=== PATIENT | male | born 1985 | race African-American/Black ===

== ENCOUNTER 2017-09-13 05:27 | Emergency (ER) | payer OTHER ==
[~2017-09-13] VITALS: Ht 193 cm; Wt 147.7 kg
[2017-09-13 05:38] VITALS: Ht 193 cm; Wt 147.7 kg
[2017-09-13 06:35] LABS: BASOPHILS 0.1 % (0-2); EOSINOPHILS 0.7 % (0-7); HEMATOCRIT 38.8 % (42.0-54.0); HEMOGLOBIN 13.3 g/dL (13.5-17.5); IMMATURE GRANULOCYTES 0.2 % (0-5); LYMPHOCYTES 10.5 % (15-50); MCH 31.4 pg (26.0-34.0); MCHC 34.3 g/dL (31.0-37.0); MCV 91.7 fL (80.0-100.0); MEAN PLATELET VOLUME 10.1 fL (7.4-10.4); MONOCYTES 12.7 % (2-11); NEUTROPHILS 75.8 % (40-80); PLATELET COUNT 232 10x3/uL (130-400); RBC 4.23 10x6/uL (4.20-6.10); RDW 14.2 % (11.5-14.5); WBC 14.5 10x3/uL (4.8-10.8)
[2017-09-13 06:59] LABS: ALBUMIN 3.4 g/dL (3.4-5.0); ALKALINE PHOSPHATASE 82 U/L (46-116); ALT (SGPT) 48 U/L (10-68); AMYLASE - SERUM 80 U/L (25-115); BILIRUBIN - TOTAL 0.74 mg/dL (0.2-1.3); CALC OSMOLALITY 275 mosm/kg (275-300); CALCIUM 8.7 mg/dL (8.5-10.1); CARBON DIOXIDE 26.8 mmol/L (21.0-32.0); CHLORIDE - SERUM 101 mmol/L (98-107); CREATININE - SERUM 0.9 mg/dL (0.6-1.3); GLUCOSE 113 mg/dL (74-106); LIPASE 623 U/L (73-393); POTASSIUM - SERUM 3.4 mmol/L (3.5-5.1); PROTEIN - SERUM 7.4 g/dL (6.4-8.2); SODIUM 139 mmol/L (136-145); UREA NITROGEN 4 mg/dL (7-18); eGFR NON AFRICAN AMERICAN > 90 mL/min (90-120)
[2017-09-13 07:16] LABS: APPEARANCE CLEAR (CLEAR); BILIRUBIN NEGATIVE (NEGATIVE); COLOR YELLOW (YELLOW); GLUCOSE NEGATIVE (NEGATIVE); KETONE SMALL mg/dL (NEGATIVE); NITRITE NEGATIVE (NEGATIVE); PROTEIN TRACE mg/dL (NEGATIVE); UROBILINOGEN NORMAL (NORMAL)
[2017-09-13 07:18] LABS: BACTERIA FEW /hpf (NONE SEEN); EPITHELIAL CELLS 0-5 /hpf (0-5); MUCUS <1+ /lpf (NONE SEEN); RED CELLS - URINE 0-5 /hpf (0-5)
[2017-09-13] MEDS ORDERED: ULTRAM50 MG PO (08:37)
[2017-09-13] MEDS ORDERED: ZOFRAN ODT4 MG/UDTAB PO (08:37)
[2017-09-13 08:53] VITALS: BP 158/93
== END 2017-09-13 08:58 | disposition home or self-care (01) ==
LOC: D.ER 05:27
PROVIDERS: Family Medicine
DX: R10.9 Unspecified abdominal pain (principal); K85.90 Acute pancreatitis without necrosis or infection, unspecified; F17.200 Nicotine dependence, unspecified, uncomplicated

== ENCOUNTER 2018-01-13 15:08 | Emergency (ER) | payer OTHER ==
[~2018-01-13] VITALS: Ht 193 cm; Wt 147.7 kg
[~2018-01-13 15:08] MED LIST: ULTRAM50 MG PO; ZOFRAN ODT4 MG/UDTAB PO
[2018-01-13 15:34] VITALS: Ht 193 cm; Wt 147.7 kg
[2018-01-13 15:46] LABS: HEMATOCRIT 41.8 % (42.0-54.0); HEMOGLOBIN 14.5 g/dL (13.5-17.5); MCHC 34.7 g/dL (31.0-37.0); MCV 92.3 fL (80.0-100.0); MEAN PLATELET VOLUME 10.1 fL (7.4-10.4); RBC 4.53 10x6/uL (4.20-6.10); RDW 14.3 % (11.5-14.5); WBC 7.1 10x3/uL (4.8-10.8)
[2018-01-13 15:59] LABS: ALBUMIN 3.7 g/dL (3.4-5.0); ALKALINE PHOSPHATASE 68 U/L (46-116); ALT (SGPT) 45 U/L (10-68); BILIRUBIN - TOTAL 0.28 mg/dL (0.2-1.3); CALC OSMOLALITY 277 mosm/kg (275-300); CALCIUM 8.8 mg/dL (8.5-10.1); CARBON DIOXIDE 22.4 mmol/L (21.0-32.0); CHLORIDE - SERUM 104 mmol/L (98-107); CREATININE - SERUM 0.9 mg/dL (0.6-1.3); GLUCOSE 100 mg/dL (74-106); POTASSIUM - SERUM 3.1 mmol/L (3.5-5.1); PROTEIN - SERUM 7.8 g/dL (6.4-8.2); SODIUM 140 mmol/L (136-145); UREA NITROGEN 10 mg/dL (7-18); eGFR NON AFRICAN AMERICAN > 90 mL/min (90-120)
[2018-01-13 16:11] LABS: PLATELET COUNT 287 10x3/uL (130-400)
[2018-01-13 16:22] LABS: APTT 28.4 SECONDS (22.8-39.4); INR 0.98 (0.85-1.17); PROTIME 12.6 SECONDS (11.6-15.0)
[2018-01-13 17:21] LABS: LYMPHOCYTES 57 % (15-50); MONOCYTES 4 % (2-11); NEUTROPHILS 39 % (40-80); PLATELET ESTIMATE NORMAL; TARGET CELLS 1+
[2018-01-13 17:25] LABS: APPEARANCE CLEAR (CLEAR); BILIRUBIN NEGATIVE (NEGATIVE); COLOR STRAW (YELLOW); GLUCOSE NEGATIVE (NEGATIVE); KETONE NEGATIVE (NEGATIVE); NITRITE NEGATIVE (NEGATIVE); PROTEIN NEGATIVE (NEGATIVE); SPECIFIC GRAVITY 1.005 (1.005-1.020); UROBILINOGEN NORMAL (NORMAL)
[2018-01-13 17:26] LABS: RED CELLS - URINE RARE /hpf (0-5); WHITE CELLS - URINE 0-5 /hpf (0-5)
[2018-01-13 17:27] LABS: BACTERIA FEW /hpf (NONE SEEN); EPITHELIAL CELLS 0-5 /hpf (0-5)
[2018-01-13 19:53] VITALS: BP 136/92
== END 2018-01-13 19:18 | disposition home or self-care (01) ==
LOC: D.ER 15:08
PROVIDERS: Family Medicine
DX: M54.2 Cervicalgia (principal); K81.1 Chronic cholecystitis; R51 Headache; E87.6 Hypokalemia; M25.562 Pain in left knee; R07.81 Pleurodynia; M25.511 Pain in right shoulder; R10.11 Right upper quadrant pain

== ENCOUNTER 2018-06-02 13:39 | Emergency (ER) | payer OTHER ==
[~2018-06-02] VITALS: Ht 193 cm; Wt 152.7 kg
[2018-06-02 13:43] VITALS: Ht 193 cm; Wt 152.7 kg
[2018-06-02 14:22] LABS: BASOPHILS 0.1 % (0-2); EOSINOPHILS 1.8 % (0-7); HEMATOCRIT 37.4 % (42.0-54.0); HEMOGLOBIN 12.9 g/dL (13.5-17.5); IMMATURE GRANULOCYTES 0.1 % (0-5); LYMPHOCYTES 24.1 % (15-50); MCH 31.1 pg (26.0-34.0); MCHC 34.5 g/dL (31.0-37.0); MCV 90.1 fL (80.0-100.0); MONOCYTES 12.4 % (2-11); NEUTROPHILS 61.5 % (40-80); PLATELET COUNT 242 10x3/uL (130-400); RBC 4.15 10x6/uL (4.20-6.10); WBC 8.7 10x3/uL (4.8-10.8)
[2018-06-02 14:48] LABS: ALBUMIN 3.6 g/dL (3.4-5.0); ALKALINE PHOSPHATASE 75 U/L (46-116); ALT (SGPT) 31 U/L (10-68); BILIRUBIN - TOTAL 0.67 mg/dL (0.2-1.3); CALC OSMOLALITY 278 mosm/kg (275-300); CALCIUM 8.8 mg/dL (8.5-10.1); CARBON DIOXIDE 25.3 mmol/L (21.0-32.0); CHLORIDE - SERUM 103 mmol/L (98-107); CREATININE - SERUM 0.8 mg/dL (0.6-1.3); GLUCOSE 120 mg/dL (74-106); POTASSIUM - SERUM 3.6 mmol/L (3.5-5.1); PROTEIN - SERUM 7.8 g/dL (6.4-8.2); SODIUM 140 mmol/L (136-145); UREA NITROGEN 9 mg/dL (7-18); eGFR NON AFRICAN AMERICAN > 90 mL/min (90-120)
[2018-06-02 14:52] LABS: AMYLASE - SERUM 24 U/L (25-115); LIPASE 152 U/L (73-393); TROPONIN-I < 0.017 ng/mL (0.000-0.060)
[2018-06-02] MEDS ORDERED: ZOFRAN8 MG PO (16:37)
[2018-06-02 17:13] VITALS: BP 139/62
== END 2018-06-02 17:14 | disposition home or self-care (01) ==
LOC: D.ER 13:39
PROVIDERS: Emergency Medicine
DX: B34.9 Viral infection, unspecified (principal)

== ENCOUNTER 2018-10-14 10:52 | Emergency (ER) | payer OTHER ==
[~2018-10-14] VITALS: Ht 193 cm; Wt 156.8 kg
[~2018-10-14 10:52] MED LIST changes: +ZOFRAN8 MG PO
[2018-10-14 10:53] VITALS: Ht 193 cm; Wt 156.8 kg
[2018-10-14 11:26] LABS: APPEARANCE CLEAR (CLEAR); BILIRUBIN NEGATIVE (NEGATIVE); COLOR YELLOW (YELLOW); GLUCOSE NEGATIVE (NEGATIVE); KETONE NEGATIVE (NEGATIVE); NITRITE NEGATIVE (NEGATIVE); PROTEIN NEGATIVE (NEGATIVE); SPECIFIC GRAVITY 1.015 (1.005-1.020); UROBILINOGEN NORMAL (NORMAL)
[2018-10-14 11:26] LABS: BASOPHILS 0.3 % (0-2); EOSINOPHILS 1.7 % (0-7); HEMATOCRIT 38.5 % (42.0-54.0); HEMOGLOBIN 13.2 g/dL (13.5-17.5); IMMATURE GRANULOCYTES 0.3 % (0-5); LYMPHOCYTES 29.8 % (15-50); MCH 30.6 pg (26.0-34.0); MCHC 34.3 g/dL (31.0-37.0); MCV 89.3 fL (80.0-100.0); MEAN PLATELET VOLUME 9.5 fL (7.4-10.4); MONOCYTES 10.9 % (2-11); PLATELET COUNT 283 10x3/uL (130-400); RBC 4.31 10x6/uL (4.20-6.10); RDW 14.5 % (11.5-14.5); WBC 7.6 10x3/uL (4.8-10.8)
[2018-10-14 11:48] LABS: ALBUMIN 3.3 g/dL (3.4-5.0); ALKALINE PHOSPHATASE 77 U/L (46-116); ALT (SGPT) 36 U/L (10-68); BILIRUBIN - TOTAL 0.23 mg/dL (0.2-1.3); CALC OSMOLALITY 275 mosm/kg (275-300); CALCIUM 8.8 mg/dL (8.5-10.1); CARBON DIOXIDE 25.2 mmol/L (21.0-32.0); CHLORIDE - SERUM 103 mmol/L (98-107); CREATININE - SERUM 0.9 mg/dL (0.6-1.3); GLUCOSE 109 mg/dL (74-106); POTASSIUM - SERUM 3.9 mmol/L (3.5-5.1); PROTEIN - SERUM 7.5 g/dL (6.4-8.2); SODIUM 137 mmol/L (136-145); UREA NITROGEN 14 mg/dL (7-18); eGFR NON AFRICAN AMERICAN > 90 mL/min (90-120)
[2018-10-14 11:54] LABS: AMYLASE - SERUM 31 U/L (25-115); LIPASE 172 U/L (73-393)
[2018-10-14 12:00] LABS: TROPONIN-I < 0.017 ng/mL (0.000-0.060)
[2018-10-14] MEDS ORDERED: CARAFATE1 G PO (13:30)
[2018-10-14] MEDS ORDERED: PROTONIX20 MG PO (13:30)
[2018-10-14 14:03] VITALS: BP 116/69
== END 2018-10-14 14:04 | disposition home or self-care (01) ==
LOC: D.ER 10:52
PROVIDERS: Family Medicine
DX: R10.12 Left upper quadrant pain (principal); K29.20 Alcoholic gastritis without bleeding

== ENCOUNTER 2018-12-29 18:44 | Inpatient (IN) | payer OTHER ==
[~2018-12-29] VITALS: Ht 193 cm; Wt 153.0 kg
[~2018-12-29 18:44] MED LIST changes: +CARAFATE1 G PO; +PROTONIX20 MG PO
[2018-12-29 19:54] LABS: HEMATOCRIT 42.2 % (42.0-54.0); HEMOGLOBIN 14.2 g/dL (13.5-17.5); MCH 31.1 pg (26.0-34.0); MCHC 33.6 g/dL (31.0-37.0); MCV 92.3 fL (80.0-100.0); MEAN PLATELET VOLUME 10.1 fL (7.4-10.4); PLATELET COUNT 315 10x3/uL (130-400); RBC 4.57 10x6/uL (4.20-6.10); RDW 14.3 % (11.5-14.5); WBC 11.6 10x3/uL (4.8-10.8)
[2018-12-29 20:00] LABS: APPEARANCE CLEAR (CLEAR); BILIRUBIN NEGATIVE (NEGATIVE); COLOR YELLOW (YELLOW); GLUCOSE NEGATIVE (NEGATIVE); KETONE NEGATIVE (NEGATIVE); NITRITE NEGATIVE (NEGATIVE); PROTEIN TRACE mg/dL (NEGATIVE); SPECIFIC GRAVITY 1.005 (1.005-1.020); UROBILINOGEN NORMAL (NORMAL)
[2018-12-29 20:01] LABS: BACTERIA FEW /hpf (NEGATIVE); EPITHELIAL CELLS 0-5 /hpf (0-5); RED CELLS - URINE 0-5 /hpf (0-5); WHITE CELLS - URINE 0-5 /hpf (NEGATIVE)
[2018-12-29 20:12] LABS: ELLIPTOCYTES OCC; LYMPHOCYTES 17 % (15-50); MONOCYTES 5 % (2-11); NEUTROPHILS 75 % (40-80); PLATELET ESTIMATE NORMAL; TARGET CELLS 2+
[2018-12-29 20:13] LABS: TEAR DROP CELLS OCC
[2018-12-29 20:14] LABS: ALBUMIN 3.7 g/dL (3.4-5.0); ALKALINE PHOSPHATASE 89 U/L (46-116); ALT (SGPT) 45 U/L (10-68); BILIRUBIN - TOTAL 0.51 mg/dL (0.2-1.3); CALC OSMOLALITY 272 mosm/kg (275-300); CALCIUM 9.1 mg/dL (8.5-10.1); CARBON DIOXIDE 24.3 mmol/L (21.0-32.0); CHLORIDE - SERUM 100 mmol/L (98-107); CREATININE - SERUM 0.8 mg/dL (0.6-1.3); GLUCOSE 113 mg/dL (74-106); POTASSIUM - SERUM 3.3 mmol/L (3.5-5.1); PROTEIN - SERUM 8.3 g/dL (6.4-8.2); SODIUM 137 mmol/L (136-145); UREA NITROGEN 8 mg/dL (7-18); eGFR NON AFRICAN AMERICAN > 90 mL/min (90-120)
[2018-12-29 20:24] LABS: LIPASE 4727 U/L (73-393); TROPONIN-I < 0.017 ng/mL (0.000-0.060)
[2018-12-29 20:28] LABS: AMYLASE - SERUM 467 U/L (25-115)
[2018-12-29] MEDS ORDERED: ZOFRAN ODT4 MG/UDTAB PO (20:42)
[2018-12-29] MEDS ORDERED: TYLENOL W/CODEI1 TAB PO (20:42)
[2018-12-29] MEDS ORDERED: OMEPRAZOLE40 MG PO (20:43)
[2018-12-29] MEDS ORDERED: ATIVAN1 MG PO (20:44)
--- NOTE | 2018-12-29 20:48 | NUR ---
pt refused admission at this time. pa at bedside.
[2018-12-29 21:32] VITALS: BP 134/88
--- NOTE | 2018-12-29 22:00 | NUR ---
NEW ADMIT TO [facility] [address] CABRERA FOR PANCREATITIS FROM ED. COOPERATIVE WITH ADMISSION ASSESSMENTS. C/O LUQ PAIN. DRUM TENDER PUMP SET UP AND PATIENT EDUCATED. PATIENT VERBALIZED UNDERSTANDING. DENIES HAVING ANY OTHER NEEDS AT TIME. RESTING IN BED WITH EYES OPEN. BED IN LOWEST POSITON. SIDE RAILS UP. CALL LIGHT IN REACH. WILL CONTINUE TO MONITOR.
[2018-12-29 23:25] VITALS: BMI 42.0
[2018-12-30 00:39] VITALS: BP 129/78
--- NOTE | 2018-12-30 04:43 | NUR ---
PATIENT RESTING IN BED WITH EYES CLOSED. NO SIGNS OF DISTRESS. BED IN LOWEST POSITION. SIDE RAILS UP. CALL LIGHT IN REACH. WILL CONTINUE TO MONITOR.
[2018-12-30 04:50] VITALS: BP 139/85
[2018-12-30 06:39] LABS: BASOPHILS 0.1 % (0-2); EOSINOPHILS 0.4 % (0-7); HEMATOCRIT 40.4 % (42.0-54.0); HEMOGLOBIN 13.5 g/dL (13.5-17.5); IMMATURE GRANULOCYTES 0.3 % (0-5); LYMPHOCYTES 20.1 % (15-50); MCH 30.8 pg (26.0-34.0); MCHC 33.4 g/dL (31.0-37.0); MEAN PLATELET VOLUME 10.1 fL (7.4-10.4); MONOCYTES 10.3 % (2-11); NEUTROPHILS 68.8 % (40-80); PLATELET COUNT 315 10x3/uL (130-400); RBC 4.39 10x6/uL (4.20-6.10); RDW 14.2 % (11.5-14.5); WBC 11.3 10x3/uL (4.8-10.8)
[2018-12-30 07:03] LABS: CALC OSMOLALITY 273 mosm/kg (275-300); CALCIUM 8.7 mg/dL (8.5-10.1); CARBON DIOXIDE 25.8 mmol/L (21.0-32.0); CHLORIDE - SERUM 102 mmol/L (98-107); CHOLESTEROL, TOTAL 110 mg/dL (0-200); CREATININE - SERUM 0.7 mg/dL (0.6-1.3); GLUCOSE 135 mg/dL (74-106); HDL CHOLESTEROL 56 mg/dL (32-96); LDL CHOLESTEROL 46 mg/dL (0-100); LDL-HDL RATIO 0.8 ratio (1.5-3.5); MAGNESIUM - SERUM 2.1 mg/dL (1.8-2.4); PHOSPHOROUS 3.7 mg/dL (2.5-4.9); POTASSIUM - SERUM 3.4 mmol/L (3.5-5.1); SODIUM 137 mmol/L (136-145); TRIGLYCERIDE 43 mg/dL (30-200); UREA NITROGEN 6 mg/dL (7-18); eGFR NON AFRICAN AMERICAN > 90 mL/min (90-120)
--- NOTE | 2018-12-30 08:11 | NUR ---
ALERT AND ORIENTED. NO DISTRESS NOTED. RESP EVEN AND UNLABORED. CL IN REACH.
[2018-12-30 08:30] VITALS: BP 143/55
--- NOTE | 2018-12-30 12:19 | NUR ---
FAMILY AT BS. TOOK SHOWER. NO C/O PAIN. CL IN REACH.
[2018-12-30 13:35] VITALS: Ht 193 cm; Wt 153.0 kg
--- NOTE | 2018-12-30 14:30 | MORECARE ---
CASE MANAGEMENT DISCHARGE SUMMARY PATIENT: GOMEZ LINO UNIT: [id number] ADM DATE: 12/29/18 AGE: 33 : [birth year] SEX: M ROOM/BED: D.1213 AUTHOR: PATRIC GUZMAN PHYSICIAN: REFERRING PHYSICIAN: HALLIE CABRERA MD DATE OF SERVICE: 12/30/18 Discharge Plan Patient Name: GOMEZ LINO Facility: [facility]:[place] : 1985 Planned Disposition: Home Anticipated Discharge Date: Discharge Date: Expected LOS: Initial Reviewer: [id number] Initial Review Date: 12/30/2018 Generated: 12/30/18 3:29 pm Comments DCP- Discharge Planning Updated by [email or web address]: Connie Douglas on 12/30/18 1:[address] Patient Name: GOMEZ LINO Admission Status: ER Accout number: [id number] Admission Date: 12-29-2018 : 1985 Admission Diagnosis: Attending: HALLIE CABRERA Current LOS: 1 Anticipated DC Date: Planned Disposition: Home Primary Insurance: [employer] PPO Discharge Planning Comments: CM MET WITH PATIENT AFTER OBTAINING VERBAL CONSENT. STATES PLANS TO DISCHARGE TO HOME. DISCUSSED NEED FOR HH, REHAB OR EQUIPMENT, PATIENT STATES NO NEEDS. CM WILL FOLLOW AND ASSIST NEEDED. Workers Compensation Attorney: Connie Douglas DCPIA - Discharge Planning Initial Assessment Updated by [id number]: Connie Douglas on 12/30/18 2:19 pm * Is the patient Alert and Oriented? Yes * PCP NONE * Pharmacy [facility] * Preadmission Environment Home with Family * ADLs Independent * Other Equipment NONE * List name and contact numbers for known caregivers / representatives who currently or will assist patient after discharge: LUISREShilpa, SPOUSE, * Please name any agencies selected above. NONE * Additional services required to return to the preadmission environment? No * Can the patient safely return to the preadmission environment? Yes * Has this patient been hospitalized within the prior 30 days at any hospital? No Patient Name: GOMEZ LINO Page [id number] at 1430 All edits/amendments must be made on the electronic document DICTATION DATE: 12/30/181428 MOTORCYCLE MAKER: DM 12/30/181428 RPT#: [id number] DC DATE: STATUS: ADM IN [facility] [address] [place] [address] END OF REPORT
[2018-12-30 14:55] VITALS: BP 128/74
--- NOTE | 2018-12-30 16:55 | NUR ---
CALLED LACIE AND DR CABRERA. PATIENT IS WANTING MORE PAIN MEDS. LACIE SAID HE IS AT MAX DOSE AND CAN'T HAVE ANYMORE. ATIVAN WAS ORDERED FOR HIM AND GIVEN. PATIENT WAS YELLING ABOUT WANTING MORE PAIN MEDS BUT, IS ACTING MORE REASONABLE AT THIS TIME. I EXPLAINED THE ATIVAN WOULD CALM HIM DOWN AND WOULD HELP HIS PAIN WHEN HE WAS MORE RELAXED.
[2018-12-30 20:00] VITALS: BP 156/86
--- NOTE | 2018-12-30 22:05 | NUR ---
INITIAL ROUNDS COMPLETED AT 1910 HRS. PT SITTING ON SIDE OF BED. NO OBVIOUS DISTRESS NOTED. ASSESSMENT COMPLETED AT 1950 HRS. IV TO LFA WITH NS AT 125CC/HR AND MORPHNE RABBIT BREEDER 1MG Q 10 MINUTES WITH 10 MG Q4HR LOCK OUOT. IV PATENT. LUNGS ESSENTIALLY CTA. ABD TENDER WITH ACTIVE BS NOTED. BAZZI. PALPABLE PERIPHERAL PULSES. VSS EXCEPT TEMP 100.6. TYLENOL 650MG PO GIVEN FOR ELEVATED TEMP. PT IN SHOWER AT 2100 HRS. OUT OF SHOWER AT 2130 HRS. STATES FEELING SLIGHTLY BETTER. CALL LIGHT WITHIN REACH.
--- NOTE | 2018-12-30 22:24 | NUR ---
ATIVAN 1MG SIVP GIVEN FOR AGITATION.
[2018-12-30 23:48] VITALS: BP 120/73
--- NOTE | 2018-12-31 00:04 | NUR ---
VSS EXCEPT HR124. PULSE EVEN AND REGULAR. PT IN SHOWER AT THIS TIME. WILL CONTINUE TO MONITOR.
--- NOTE | 2018-12-31 01:41 | NUR ---
PT WATCHNG TV. NO DISTRESS NOTED. PT TOOK ANOTHER SHOWER 30MINUTES AGO. STAES HELPS THE BURNING SENSATION IN HIS ABD. CALL LIGHT WITHIN REACH.
--- NOTE | 2018-12-31 03:09 | NUR ---
IV OUT WITH CATHETER INTACT. PT UP IN SHOWER AT THIS TIME.
--- NOTE | 2018-12-31 03:34 | NUR ---
NEW IV STARTED #20 TO L HAND WITH ATEMPT X3. PT TOLERATED ACTIVITY WELL. MVI RESTARTED AT 125CC/HR.
[2018-12-31 04:03] VITALS: BP 157/66
--- NOTE | 2018-12-31 04:32 | NUR ---
TYLENOL 650 MG POI GIVEN PER PT REQUEST. FRIEND AT BEDSIDE.
--- NOTE | 2018-12-31 05:54 | NUR ---
PT UNALBE TO BE WSTILL. STILL HAS C/O ABD PAIN WITH TYLENOL AND MORPHINE PRODUCTION LINE MECHANIC. FRIEND AT BEDSIDE. CALL LIGHT WITHIN REACH.
--- NOTE | 2018-12-31 07:10 | NUR ---
REPORT RECEIVED FROM CONDITIONING MACHINE OPERATOR AND PATIENT CARE ASSUMED. PATIENT LAYING IN BED ON RT SIDE AWAKE, ALERT AND ORIENTED X 4. PATIENT DENIES ANY NEEDS OR PAIN. MORPHINE EXPORT SALES MANAGER IS MAXED OUT AND LOCKED OUT. FAMILY MEMBER ASLEEP IN BS CHAIR. WILL CONTINUE WITH PLAN OF CARE. SR UP X 2 BED IN LOW POSITION AND CALL LIGHT IN REACH.
[2018-12-31 07:39] LABS: BASOPHILS 0.1 % (0-2); EOSINOPHILS 0.1 % (0-7); HEMATOCRIT 37.7 % (42.0-54.0); HEMOGLOBIN 12.8 g/dL (13.5-17.5); IMMATURE GRANULOCYTES 0.7 % (0-5); LYMPHOCYTES 8.6 % (15-50); MCH 31.1 pg (26.0-34.0); MCV 91.7 fL (80.0-100.0); MEAN PLATELET VOLUME 9.8 fL (7.4-10.4); MONOCYTES 13.9 % (2-11); NEUTROPHILS 76.6 % (40-80); PLATELET COUNT 273 10x3/uL (130-400); RBC 4.11 10x6/uL (4.20-6.10); RDW 14.2 % (11.5-14.5); WBC 19.3 10x3/uL (4.8-10.8)
[2018-12-31 07:50] LABS: AMYLASE - SERUM 132 U/L (25-115); CALC OSMOLALITY 266 mosm/kg (275-300); CALCIUM 8.4 mg/dL (8.5-10.1); CARBON DIOXIDE 23.8 mmol/L (21.0-32.0); CHLORIDE - SERUM 100 mmol/L (98-107); CREATININE - SERUM 0.8 mg/dL (0.6-1.3); GLUCOSE 133 mg/dL (74-106); LIPASE 614 U/L (73-393); MAGNESIUM - SERUM 2.3 mg/dL (1.8-2.4); PHOSPHOROUS 2.5 mg/dL (2.5-4.9); POTASSIUM - SERUM 3.6 mmol/L (3.5-5.1); SODIUM 134 mmol/L (136-145); UREA NITROGEN 5 mg/dL (7-18); eGFR NON AFRICAN AMERICAN > 90 mL/min (90-120)
--- NOTE | 2018-12-31 17:57 | NUR ---
HEARD IV PUMP BEEPING. ENTERED PATIENTS ROOM. PATIENT HAD ONCE AGAIN DISCONNECTED IV AND WAS IN THE SHOWER.
--- NOTE | 2018-12-31 18:02 | NUR ---
BACK IN PATIENTS ROOM. PATIENT OUT OF SHOWER, DRESS[facility] CALL PUT IN TO DR NATIONAL RECRUITER TO REQUEST MORPHINE WHEY DEPARTMENT OPERATOR BE DCD AND IV FLUIDS. PATIENT IS DRINKING CLEAR LIQUIDS WITHOUT DIFFICULTY.
--- NOTE | 2018-12-31 18:21 | NUR ---
PATIENT UP TO SHOWER MULTIPLE TIMES AND PATIENT DISCONNECTED ON IV EACH TIME. SPENT SEVERAL MINUTES WITH PATIENT TODAY EDUCATING PATIENT ABOUT NOT DCD OWN IV AND TO LET NURSE KNOW. PATIENT REFUSED MULTIPLE TIMES AND REPEATEDLY SHOWERED AND DISCONNECTED OWN IV. SPOKE WITH QIAN MEDELLIN. RECIEVED ORDER TO DC MORPHINE AND IV FLUIDS AND SL IV. ORDER RECEIVED FOR MORPHINE 1 - 4 MG IV EVERY 4 HOURS PRN PAIN.
--- NOTE | 2018-12-31 19:08 | NUR ---
INITIAL ROUNDS COMPLETED. PT RESTING WITH EYES CLOSED. RESP EVEN AND REGULAR. SRUP X2, CALL LIGHT WITHIN REACH.
[2018-12-31 19:51] VITALS: BP 142/76
--- NOTE | 2018-12-31 19:57 | NUR ---
ASSESSMENT COMPLETED AT 1920 HRS. TEMP 101.2 AND HR 128 EVEN AND REGULAR. ALERT AND ORIENTED TO PERSON, PLACE AND TIME. BAZZI. LUNGS DIMINISHED IN BASES BILAT. ABD TENDER WITH ACTIVE BS NOTED. NO IV. TYLENOL 650MG PO GIVEN FOR ELEVATED TEMP. IV STARTED #22 TO KERON ENNIS WITH ATTENPT X1. PT TOLERATED ACTIVITY WELL. PT REFUSED PM BANANA BAG AND IV FLUIDS. WILL CONTINUE TO MONITOR. CALL LIGHT WITHIN REACH.
--- NOTE | 2018-12-31 21:51 | NUR ---
TEMP DOWN TO 100.7. HR DOWN TO 112 EVEN AND REGULAR. WILL CONTINUE TO MONITOR.
[2019-01-01 00:22] VITALS: BP 145/79
--- NOTE | 2019-01-01 00:25 | NUR ---
TEMP 101. HR 120 EVEN AND REGULAR. UNALBE TO ADMINISTER TYLENOL UNTIL 0130 HRS. PT STASTED HE IS GONG TO TAKE A SHOWER. TOWELS GIVEN. STATES ABD PAIN 2/10 AT THIS TIME. CALL LIGHT WITHIN REACH.
--- NOTE | 2019-01-01 01:33 | NUR ---
PT RESTING WITH EYES CLOSED. RESP EVEN AND REGULAR. SR UP X2, CALL LIGHT WITHIN REACH.
--- NOTE | 2019-01-01 04:34 | NUR ---
TEMP 101.2 TYLENOL 650MG PO GIVEN. AC AND FAN ON. FRIENED AT BEDSIDE.
[2019-01-01 04:36] VITALS: BP 122/51
[2019-01-01 07:05] LABS: HEMATOCRIT 36.2 % (42.0-54.0); HEMOGLOBIN 12.3 g/dL (13.5-17.5); MCH 31.2 pg (26.0-34.0); MCV 91.9 fL (80.0-100.0); MEAN PLATELET VOLUME 9.8 fL (7.4-10.4); PLATELET COUNT 262 10x3/uL (130-400); RBC 3.94 10x6/uL (4.20-6.10); RDW 14.2 % (11.5-14.5); WBC 21.8 10x3/uL (4.8-10.8)
--- NOTE | 2019-01-01 07:10 | NUR ---
REPORT RECEIVED FROM DISTRICT ADMINISTRATIVE ASSISTANT AND PATIENT CARE ASSUMED. PATIENT LAYING IN BED ON BACK WITH EYES CLOSED AND BREATHING EVENLY. FAMILY ALSEEP IN BS CHAIR. WILL CONTINUE WITH PLAN OF CARE. SRUP X 2 BED IN LOW POSITION AND CALL LIGHT IN REACH.
[2019-01-01 07:15] LABS: CALC OSMOLALITY 267 mosm/kg (275-300); CALCIUM 8.8 mg/dL (8.5-10.1); CARBON DIOXIDE 25.9 mmol/L (21.0-32.0); CHLORIDE - SERUM 100 mmol/L (98-107); CREATININE - SERUM 0.8 mg/dL (0.6-1.3); GLUCOSE 128 mg/dL (74-106); LIPASE 160 U/L (73-393); MAGNESIUM - SERUM 2.4 mg/dL (1.8-2.4); PHOSPHOROUS 1.9 mg/dL (2.5-4.9); POTASSIUM - SERUM 3.3 mmol/L (3.5-5.1); SODIUM 134 mmol/L (136-145); UREA NITROGEN 6 mg/dL (7-18); eGFR NON AFRICAN AMERICAN > 90 mL/min (90-120)
[2019-01-01 07:16] LABS: AMYLASE - SERUM 35 U/L (25-115)
[2019-01-01 08:00] VITALS: BP 136/72
--- NOTE | 2019-01-01 08:00 | NUR ---
PATIENT AMBULATES TO NURSES STATION. STATES HE WANTS TO GO HOME AND QUESTIONING WHEN HE COULD. INFORMED PATIENT THAT DR WILL ROUNDING AND DR WILL DISCUSS WITH HIM.
[2019-01-01 08:11] LABS: LYMPHOCYTES 10 % (15-50); MONOCYTES 8 % (2-11); NEUTROPHILS 71 % (40-80)
[2019-01-01 08:12] LABS: PLATELET ESTIMATE NORMAL
--- NOTE | 2019-01-01 09:15 | NUR ---
PATIENT LAYING IN BED ON STOMACH WITH EYES CLOSED AND BREATHING EVENLY WITH AUDIBLE SNORING. FAMILY AT BS. WILL CONTINUE TO MONITOR. SR UP X 2 BED IN LOW POSITION AND CALL LIGHT IN REACH.
--- NOTE | 2019-01-01 11:10 | NUR ---
PATIENT UP TO SHOWER.
[2019-01-01 11:30] VITALS: BP 131/75
--- NOTE | 2019-01-01 14:30 | NUR ---
ENTERED PATIENTS ROOM TO GIVE IV MEDS . PATIENT HAS ONCE AGAIN-4TH TIME- PATIENT HAS REMOVED.QUESTIONED PATIENT ABOUT WHY HE REMOVED IV AGAIN, HE STATES THAT HE THOUGHT IT WASNT NEEDED ANYMORE. CALLED QIAN MEDELLIN AND RECEIVED ORDER FOR PO LEVOFLOXIN 750 MG.
[2019-01-01 17:00] VITALS: BP 138/82
--- NOTE | 2019-01-01 19:31 | NUR ---
PATIENT RESTING IN BED AND DENIES NEEDS AT THIS TIME. BED IN LOWEST POSITION AND CALL LIGHT WITHIN REACH. ENCOURAGED THE PATIENT TO CALL IF SHE HAS NEEDS. WILL CONTINUE TO MONITOR.
[2019-01-01 20:02] VITALS: BP 112/77
[2019-01-02 00:05] VITALS: BP 138/83
[2019-01-02 04:58] VITALS: BP 120/75
[2019-01-02 06:33] LABS: BASOPHILS 0.2 % (0-2); HEMATOCRIT 35.4 % (42.0-54.0); IMMATURE GRANULOCYTES 0.2 % (0-5); LYMPHOCYTES 14.6 % (15-50); MCH 30.8 pg (26.0-34.0); MCHC 33.9 g/dL (31.0-37.0); MCV 90.8 fL (80.0-100.0); MEAN PLATELET VOLUME 10.5 fL (7.4-10.4); MONOCYTES 11.5 % (2-11); NEUTROPHILS 72.5 % (40-80); RDW 14.5 % (11.5-14.5)
[2019-01-02 06:38] LABS: PLATELET COUNT 331 10x3/uL (130-400); WBC 14.7 10x3/uL (4.8-10.8)
[2019-01-02 07:33] LABS: AMYLASE - SERUM 43 U/L (25-115); CALC OSMOLALITY 274 mosm/kg (275-300); CARBON DIOXIDE 24.8 mmol/L (21.0-32.0); CHLORIDE - SERUM 101 mmol/L (98-107); CREATININE - SERUM 0.8 mg/dL (0.6-1.3); GLUCOSE 131 mg/dL (74-106); LIPASE 356 U/L (73-393); MAGNESIUM - SERUM 2.3 mg/dL (1.8-2.4); POTASSIUM - SERUM 3.1 mmol/L (3.5-5.1); SODIUM 137 mmol/L (136-145); eGFR NON AFRICAN AMERICAN > 90 mL/min (90-120)
[2019-01-02 07:34] LABS: PHOSPHOROUS 1.5 mg/dL (2.5-4.9); UREA NITROGEN 9 mg/dL (7-18)
--- NOTE | 2019-01-02 08:15 | NUR ---
PT RESTING IN BED WITH EYES OPEN CALL LIGHT IN REACH NO PROBLEMS WILL MONITER
--- NOTE | 2019-01-02 10:37 | NUR ---
Nutrition Follow-up: Chart reviewed. Per MD notes yesterday, pancreatic enzymes were normal. Noted pt with diarrhea, MD is sending stool for CDT test. Noted pt on Levaquin. Labs noted, lyte replacement PRN noted in meds. Glucose has been elevated since admit, consider testing A1c. Consider transition to CHO consistent diet. PO intake has been 100% since admit. RD Following.
--- NOTE | 2019-01-02 17:51 | NUR ---
PT RESTING IN BED WITH EYES OPEN CALL LIGHT IN REACH WILL MONITER
[2019-01-02 20:00] VITALS: BP 118/75
--- NOTE | 2019-01-02 20:00 | NUR ---
PT A/OX4, UP AD JAVIER, LUNGS CLEAR, LEFT HAND PIV INTACT AND SL, WATCHING TV WITH NO C/O
[2019-01-03 00:12] VITALS: BP 121/68
[2019-01-03 04:23] VITALS: BP 97/59
[2019-01-03 06:41] LABS: BASOPHILS 0.3 % (0-2); EOSINOPHILS 2.2 % (0-7); HEMATOCRIT 34.4 % (42.0-54.0); HEMOGLOBIN 11.7 g/dL (13.5-17.5); IMMATURE GRANULOCYTES 0.5 % (0-5); LYMPHOCYTES 22.1 % (15-50); MCH 30.9 pg (26.0-34.0); MCV 90.8 fL (80.0-100.0); MEAN PLATELET VOLUME 9.8 fL (7.4-10.4); NEUTROPHILS 63.9 % (40-80); PLATELET COUNT 357 10x3/uL (130-400); RBC 3.79 10x6/uL (4.20-6.10); RDW 14.5 % (11.5-14.5); WBC 11.5 10x3/uL (4.8-10.8)
[2019-01-03 07:02] LABS: CALC OSMOLALITY 275 mosm/kg (275-300); CALCIUM 8.7 mg/dL (8.5-10.1); CARBON DIOXIDE 25.6 mmol/L (21.0-32.0); CHLORIDE - SERUM 101 mmol/L (98-107); CREATININE - SERUM 0.7 mg/dL (0.6-1.3); GLUCOSE 113 mg/dL (74-106); POTASSIUM - SERUM 3.3 mmol/L (3.5-5.1); SODIUM 138 mmol/L (136-145); UREA NITROGEN 11 mg/dL (7-18); eGFR NON AFRICAN AMERICAN > 90 mL/min (90-120)
[2019-01-03 07:03] LABS: PHOSPHOROUS 3.7 mg/dL (2.5-4.9)
[2019-01-03 08:06] VITALS: BP 100/56
--- NOTE | 2019-01-03 08:49 | NUR ---
ALERT AND ORIENTED. NO DISTRESS AT THIS TIME. CL IN REACH.
--- NOTE | 2019-01-03 10:42 | NUR ---
NO CHANGE IN ASSESSMENT. CL IN REACH.
[2019-01-03] MEDS ORDERED: FLAGYL500 MG PO (11:37)
[2019-01-03] MEDS ORDERED: PROTONIX40 MG PO (11:38)
--- NOTE | 2019-01-03 12:21 | NUR ---
DC INSTRUCTIONS GIVEN. VERBALIZES UNDERSTANDING. NO CHANGE IN ASSESSMENT. DC'D AT THIS TIME.
--- NOTE | 2019-01-03 15:37 | MORECARE ---
CASE MANAGEMENT DISCHARGE SUMMARY PATIENT: GOMEZ LINO UNIT: [id number] ADM DATE: 12/29/18 AGE: 33 : 83 SEX: M ROOM/BED: D.1213 AUTHOR: PATRIC GUZMAN PHYSICIAN: REFERRING PHYSICIAN: HALLIE CABRERA MD DATE OF SERVICE: 01/03/19 Discharge Plan Patient Name: GOMEZ LINO Facility: [facility]:[place] : 1985 Planned Disposition: Home Anticipated Discharge Date: Discharge Date: 01/03/2019 Expected LOS: Initial Reviewer: [email or web address] Initial Review Date: 12/30/2018 Generated: 01/03/19 4:37 pm DCP- Discharge Planning Updated by [email or web address]: Connie Douglas on 12/30/18 1:[address] Patient Name: GOMEZ LINO Admission Status: ER Accout number: [id number] Admission Date: 12-29-2018 : 1985 Admission Diagnosis: Attending: HALLIE CABRERA Current LOS: 1 Anticipated DC Date: Planned Disposition: Home Primary Insurance: [employer] PPO Discharge Planning Comments: CM MET WITH PATIENT AFTER OBTAINING VERBAL CONSENT. STATES PLANS TO DISCHARGE TO HOME. DISCUSSED NEED FOR HH, REHAB OR EQUIPMENT, PATIENT STATES NO NEEDS. CM WILL FOLLOW AND ASSIST NEEDED. Batch Plant Supervisor: Connie Douglas DCPIA - Discharge Planning Initial Assessment Updated by [email or web address]: Connie Douglas on 12/30/18 2:19 pm * Is the patient Alert and Oriented? Yes * PCP NONE * Pharmacy [facility] * Preadmission Environment Home with Family * ADLs Independent * Other Equipment NONE * List name and contact numbers for known caregivers / representatives who currently or will assist patient after discharge: LUISREA, SPOUSE, * Please name any agencies selected above. NONE * Additional services required to return to the preadmission environment? No * Can the patient safely return to the preadmission environment? Yes * Has this patient been hospitalized within the prior 30 days at any hospital? No Last DP export: 12/30/18 1:30 Patient Name: GOMEZ LINO Page [id number] at 1537 All edits/amendments must be made on the electronic document DICTATION DATE: 01/03/191536 FLATWORK FOLDER: [email or web address] 01/03/19 1537 RPT#: [id number] DC DATE:01/03/19 STATUS: DIS IN [facility] [address] [facility] [place] [address] END OF REPORT
== END 2019-01-03 12:29 | disposition home or self-care (01) | DRG 438 ==
LOC: D.ER 18:44 → D.M3 21:05
PROVIDERS: Family Medicine; ADMIT Emergency Medicine; ATTEND Emergency Medicine
DX: K85.20 Alcohol induced acute pancreatitis without necrosis or infection (principal); A41.9 Sepsis, unspecified organism; F17.213 Nicotine dependence, cigarettes, with withdrawal; E87.1 Hypo-osmolality and hyponatremia; Z68.41 Body mass index [BMI] 40.0-44.9, adult; F10.10 Alcohol abuse, uncomplicated; E87.6 Hypokalemia; D64.9 Anemia, unspecified; E66.01 Morbid (severe) obesity due to excess calories; R19.7 Diarrhea, unspecified